=== PATIENT | female | born 1970 | race Hispanic/Latino ===

== ENCOUNTER 2019-08-14 18:08 | Emergency (ER) | payer OTHER ==
[~2019-08-14] VITALS: Ht 157.5 cm; Wt 62.1 kg
[~2019-08-14 18:08] MED LIST: BISCOLAX10 MG RC; COLACE100 MG/10 PO; DULCOLAX5 MG PO; FERROUS SULFAT325 M1; FLAGYL250 MG PO; GAS-X ULTRA ST180 MG; IBUPROFEN; IBUPROFEN600 MG PO; IRON; LEVAQUIN500 MG PO; MIRALAX17 GM; TYLENOL # 31 EA PO; TYLENOL WITH C1 EACH PO
[2019-08-14] MEDS ORDERED: SODIUM CHLORIDE 0.9% 1000ML 1,000 ML IV STA (18:35)
[2019-08-14] MEDS ORDERED: KETOROLAC TROMETHAMINE 30 MG/ML VIAL IV STA (18:35)
[2019-08-14] MEDS ORDERED: ONDANSETRON HCL INJ 2MG/ML 2ML 2 MG/ML VIAL IV STA (18:35)
[2019-08-14 19:22] LABS: BASOPHILS % 0.4 % (0.0-1.0); EOSINOPHILS # (AUTO) 0.1 (0.0-0.4); EOSINOPHILS % 1.6 % (0.0-6.0); HEMOGLOBIN 15.5 g/dL (12.0-16.0); LYMPHOCYTES # (AUTO) 2.3 (1.0-3.2); LYMPHOCYTES % 28.3 % (18.0-39.1); MEAN CORPUSCULAR HEMOGLOBIN 32.6 pg (28-32); MEAN CORPUSCULAR HGB CONC 34.4 g/dL (31-35); MEAN CORPUSCULAR VOLUME 94.5 fL (81-99); MONOCYTES # (AUTO) 0.4 (0.2-0.8); MONOCYTES % 5.4 % (4.4-11.3); NEUTROPHILS # (AUTO) 5.2 (2.1-6.9); NEUTROPHILS % 63.9 % (38.7-80.0); PLATELET COUNT 258 x10e3/uL (140-360); RED BLOOD COUNT 4.76 x10e6/uL (3.6-5.1); RED CELL DISTRIBUTION WIDTH 11.7 % (11.7-14.4)
[2019-08-14 19:43] LABS: ALANINE AMINOTRANSFERASE 43 IU/L (0-55); ALBUMIN 4.6 g/dL (3.5-5.0); ALBUMIN/GLOBULIN RATIO 1.4 (0.8-2.0); ALKALINE PHOSPHATASE 91 IU/L (40-150); ANION GAP 11.4 mmol/L (8-16); BLOOD UREA NITROGEN 6 mg/dL (7-26); BUN/CREATININE RATIO 9 (6-25); CALCIUM 9.5 mg/dL (8.4-10.2); CARBON DIOXIDE 29 mmol/L (22-29); CHLORIDE 103 mmol/L (98-107); CREATININE, SERUM 0.65 mg/dL (0.57-1.11); EST GLOMERULAR FILTRATION RATE > 60 ML/MIN (60-); GLUCOSE 74 mg/dL (74-118); POTASSIUM 3.4 mmol/L (3.5-5.1); SODIUM 140 mmol/L (136-145)
[2019-08-14 20:35] LABS: CLARITY,URINE CLEAR (CLEAR); COLOR,URINE YELLOW (YELLOW); LEUKOCYTE ESTERASE ,URINE NEGATIVE (NEGATIVE); NITRITE,URINE NEGATIVE (NEGATIVE)
[2019-08-14 20:36] LABS: BILIRUBIN,URINE NEGATIVE (NEGATIVE); KETONES,URINE NEGATIVE (NEGATIVE); PROTEIN,URINE DIPSTICK NEGATIVE (NEGATIVE); URINE UROBILINOGEN 0.2 mg/dL (0.2 - 1)
[2019-08-14 20:48] LABS: WBC,URINE (MAN) 0-5 /HPF (0-5)
[2019-08-14 20:49] LABS: BACTERIA,URINE RARE /HPF; EPITHELIAL CELLS,URINE MODERATE /LPF
--- NOTE | 2019-08-14 21:15 | Diagnostic Imaging Report ---
EXAMINATION: Head CT without contrast. HISTORY:Headache, nausea and blurred vision. COMPARISON:None. TECHNIQUE: Multidetector axial images were obtained from the foramen magnum to the vertex without contrast. The images were reconstructed using brain and bone algorithms. Thin section brain images were reformatted into coronal and sagittal planes. Dose modulation, iterative reconstruction, and/or weight based adjustment of the mA/kV was utilized to reduce the radiation dose to as low as reasonably achievable. Intravenous contrast: None IMAGE QUALITY: Acceptable. FINDINGS: Skull/scalp: No lytic or blastic. lesions. No surgical changes. Parenchyma: No abnormal density. No acute hemorrhage, mass or acute major vascular territorial infarct. Arteries: No density suggestive of thrombosis. Dural sinuses: No abnormal density suggestive of thrombosis. Ventricles: No hydrocephalus or displacement. Extra-axial spaces: No abnormal density. Brain volume: Normal for age. Craniocervical junction: No mass, Chiari malformation, or basilar invagination. Sella: No mass. Paranasal/mastoid sinuses: Imaged portions unremarkable. IMPRESSION: No intracranial abnormality. Signed by: Dr. Laura Martinez M.D. on 08/14/2019 9:13 PM
--- NOTE | 2019-08-14 22:10 | Diagnostic Imaging Report ---
EXAM: CT Abdomen and Pelvis WITHOUT contrast INDICATION: Hiatal hernia. Abdominal pain, nausea. COMPARISON: CT abdomen/pelvis 06/25/2019. TECHNIQUE: Abdomen and pelvis were scanned utilizing a multidetector helical scanner from the lung base to the pubic symphysis without administration of IV contrast. Absence of intravenous contrast decreases sensitivity for detection of focal lesions and vascular pathology. Coronal and sagittal reformations were obtained. Routine protocol was performed. IV CONTRAST: None. ORAL CONTRAST: Gastrografin RADIATION DOSE: Total DLP: 180.4 mGy*cm Estimated effective dose: (DLP x 0.015 x size factor) mSv COMPLICATIONS: None FINDINGS: LINES and TUBES: None. LOWER THORAX: Unremarkable HEPATOBILIARY: No focal hepatic lesions. No biliary ductal dilation. GALLBLADDER: Status post cholecystectomy. SPLEEN: No splenomegaly. PANCREAS: No focal masses or ductal dilatation. ADRENALS: No adrenal nodules KIDNEYS/URETERS: No hydronephrosis. No cystic or solid mass lesions. No stones. GI TRACT: No evidence of bowel obstruction or wall thickening. There is distention of the stomach with significant enteric contents and contrast. Abundant stool throughout the colon. PELVIC ORGANS/BLADDER: Status post hysterectomy. Previously noted high attenuation lesion in the left adnexa is no longer visualized. There is a 3.8 cm left adnexal hypodensity measuring simple attenuation, likely a physiologic cyst. LYMPH NODES: No lymphadenopathy. VESSELS: Unremarkable. PERITONEUM / RETROPERITONEUM: Interval resolution of free air. Apparent extraluminal air on series 3, image 18 corresponds to intraluminal duodenal air, with displacement secondary to dilated stomach. No free fluid. BONES: Unremarkable. SOFT TISSUES: Unremarkable. IMPRESSION: Interval resolution of previously noted pneumoperitoneum, likely postsurgical. Abundant stool throughout the colon, suggest clinical correlation for constipation. Distended stomach with enteric contents and contrast. No evidence of gastric outlet obstruction, as contrast is seen in the small bowel. Previously noted high attenuation lesion in the left adnexa is no longer visualized. There is a 3.8 cm left adnexal hypodensity measuring simple attenuation, likely a physiologic cyst. Suggest follow-up nonemergent pelvic ultrasound. Signed by: Dr. Brad Harris MD on 08/14/2019 10:08 PM
[2019-08-14 22:40] VITALS: BP 107/74
== END 2019-08-14 22:18 | disposition home or self-care (01) ==
LOC: ER 18:08
DX: R10.84 Generalized abdominal pain (principal); R11.0 Nausea; R51 Headache; K59.00 Constipation, unspecified
CPT/HCPCS: 36415; 70450; 74176; 80053; 81001; 82150; 83690; 85025; 87086; 99284; J1885; J2405; J7030

== ENCOUNTER 2024-05-19 07:02 | Emergency (ER) | payer OTHER ==
[~2024-05-19] VITALS: Ht 157.5 cm; Wt 62.1 kg
[~2024-05-19 07:02] MED LIST changes: +BENADRYL25 M1 PO; +PEPCID20 MG PO; +ZYRTEC10 MG PO
[2024-05-19 07:37] LABS: BASOPHILS % 0.3 % (0.0-1.0); EOSINOPHILS # (AUTO) 0.1 (0.0-0.4); EOSINOPHILS % 0.9 % (0.0-6.0); HEMATOCRIT 36.7 % (34.2-44.1); HEMOGLOBIN 11.9 g/dL (12.0-16.0); LYMPHOCYTES # (AUTO) 2.1 (1.0-3.2); LYMPHOCYTES % 24.9 % (18.0-39.1); MEAN CORPUSCULAR HEMOGLOBIN 30.6 pg (28-32); MEAN CORPUSCULAR HGB CONC 32.4 g/dL (31-35); MEAN CORPUSCULAR VOLUME 94.3 fL (81-99); MONOCYTES # (AUTO) 0.5 (0.2-0.8); MONOCYTES % 6.3 % (4.4-11.3); NEUTROPHILS # (AUTO) 5.8 (2.1-6.9); NEUTROPHILS % 67.4 % (38.7-80.0); PLATELET COUNT 331 x10e3/uL (140-360); RED BLOOD COUNT 3.89 x10e6/uL (3.6-5.1); RED CELL DISTRIBUTION WIDTH 11.5 % (11.7-14.4)
[2024-05-19 08:25] LABS: ALBUMIN 3.5 g/dL (3.5-5.0); ALBUMIN/GLOBULIN RATIO 0.8 (0.8-2.0); BILIRUBIN,TOTAL 0.5 mg/dL (0.2-1.2); CALCIUM 9.4 mg/dL (8.4-10.2); CREATININE, SERUM 0.64 mg/dL (0.57-1.11); TOTAL PROTEIN 7.8 g/dL (6.5-8.1)
[2024-05-19] MEDS ORDERED: CLINDAMYCIN HC150 MG PO (09:21)
[2024-05-19 09:24] VITALS: PULSE 78; RESP 18; TEMP 98.2; O2SAT 98
== END 2024-05-19 09:30 | disposition home or self-care (01) ==
LOC: ER 07:11
DX: R13.10 Dysphagia, unspecified (principal); L98.9 Disorder of the skin and subcutaneous tissue, unspecified
CPT/HCPCS: 36415; 70490; 80053; 85025; 99283